=== PATIENT | female | born 1970 | race Two or more races ===

== ENCOUNTER 2017-09-07 00:12 | Emergency (ER) | payer SELFPAY ==
[~2017-09-07] VITALS: Ht 162.6 cm; Wt 63.5 kg
[2017-09-07 00:12] VITALS: BP 120/60
== END 2017-09-07 02:43 | disposition home or self-care (01) ==
LOC: ER 00:14
DX: S01.01XA Laceration without foreign body of scalp, initial encounter (principal); Y04.8XXA Assault by other bodily force, initial encounter; Y93.89 Activity, other specified; Y92.89 Other specified places as the place of occurrence of the external cause; Y99.8 Other external cause status
CPT/HCPCS: 70450-TC; A4606; Z7610

== ENCOUNTER 2017-09-16 16:24 | Emergency (ER) | payer SELFPAY ==
[~2017-09-16] VITALS: Ht 167.6 cm; Wt 49.9 kg
[2017-09-16 16:24] VITALS: BP 129/89
== END 2017-09-16 17:12 | disposition home or self-care (01) ==
LOC: ER 16:29
DX: S01.01XD Laceration without foreign body of scalp, subsequent encounter (principal); X58.XXXD Exposure to other specified factors, subsequent encounter
CPT/HCPCS: 99281; A4606; Z7610; Z7502